=== PATIENT | female | born 1965 | race Caucasian/White ===

== ENCOUNTER 2025-07-09 10:01 | Observation (INO) | payer OTHER, SELFPAY ==
[2025-07-09] VITALS (14 sets, daily range): BP systolic 116–164; BP diastolic 63–138; PULSE 77–99; RESP 12–20; TEMP 36.4–36.9; O2SAT 97–100; BMI 20.8
--- NOTE | ~2025-07-09 | US_ITS ---
EXAMINATION: US carotid duplex BI DATE: 07/10/2025 13:01 INDICATION: Assess stroke risk TECHNIQUE: Grayscale, color Doppler, and pulsed Doppler images of the cervical carotid arteries were obtained. The degree of vessel stenosis is placed in one of the following categories: normal, <50%, 50-69%, >=70% but less than near- occlusion, near-occlusion, or total occlusion. Note that percent stenosis relative to normal distal artery lumen diameter is indirectly measured from velocity measurements as described by Erik, et al. Radiology 2003; 229:340-346. Notes: Normal: Peak systolic velocity <125 centimeters/sec and no plaque <50%. Peak systolic velocity <125 (EDV <40; ICA/CCA PSV ratio <2.0; used these factors only a tandem lesions or low cardiac output or contralateral disease) 50-69 %: PSV 125-230 (EDV 40-100; ratio 2-4) >= 70% but less than near occlusion: PSV greater than 230 (EDV > 100; ratio> 4.0) Near Occlusion: PSV that is variable; markedly narrowed lumen Occlusion: Absent flow on color/spectral Doppler and no lumen on ortiz scale. COMPARISON: None. FINDINGS: RIGHT: The right common carotid artery (CCA) peak systolic velocity (PSV) is 87 cm/s. The right internal carotid artery (ICA) PSV is 84 cm/s. The right ICA end- diastolic velocity (EDV) is 24 cm/s. The right ICA/CCA PSV ratio is 1.0. The external carotid artery (ECA) PSV is 96 cm/s. There is antegrade flow in the right vertebral artery. LEFT: The left CCA PSV is 84 cm/s. The left ICA PSV is 87 cm/s. The left ICA EDV is 31 cm/s. The left ICA/CCA PSV ratio is 1.0. The ECA PSV is 104 cm/s. There is antegrade flow in the left vertebral artery. IMPRESSION: 1. Less than 50% stenosis in the right internal carotid artery by sonographic criteria. 2. Less than 50% stenosis in the left internal carotid artery by sonographic criteria. Reviewed, dictated and finalized at location I. K HEADLIGHT ASSEMBLER IMPRESSION: 1. Less than 50% stenosis in the right internal carotid artery by sonographic onesimo hatch. 2. Less than 50% stenosis in the left internal carotid artery by sonographic nancy witt.
--- NOTE | ~2025-07-09 | CT_ITS ---
CT HEAD NON-CONTRAST Clinical History: fall, unwitnessed, nursing reporting balance issue Comparison: CT 07/09/2025 MRI 07/10/2025 Technique: Unenhanced axial images skull base to vertex Coronal, sagittal reformats CT images acquired with automatic exposure control for dose reduction DLP: 605 mGy-cm Findings: Mild white matter changes, typically chronic microvascular ischemic disease. Left thalamic lacune. Sulci, ventricles: Unremarkable. No intracerebral hemorrhage. No evidence acute territorial infarct. No mass effect, midline shift. Bony calvarium intact. Visualized paranasal sinuses: Clear. Mastoid air cells: Clear. IMPRESSION: 1. No acute intracranial findings. Reviewed, dictated and finalized at location R. INTAKE
--- NOTE | ~2025-07-09 | CT_ITS ---
EXAMINATION: CT brain wo con DATE: 07/09/2025 10:26 INDICATION: Altered mental status. TECHNIQUE: Computed tomography (CT) of the head was performed without intravenous contrast. The mA was adjusted according to patient size. Iterative reconstruction technique was employed. The dose-length product was 605.33 mGy-cm. COMPARISON: Head CT 05/13/2013 FINDINGS: There are scattered areas of low attenuation in the cerebral white matter. There is no intracranial hemorrhage, acute infarction, or abnormal intracranial mass lesion. The ventricles are normal in size. There is mild mucosal thickening in the paranasal sinuses. 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 The orbits are normal. The mastoid air cells are normal. IMPRESSION: 1. Moderate nonspecific cerebral white matter disease, which likely represents chronic small vessel ischemic disease. Reviewed, dictated and finalized at location E. ING EQUIPMENT MECHANIC
--- NOTE | ~2025-07-09 | MR_ITS ---
EXAMINATION: MR brain/brain stem wo con DATE: 07/10/2025 12:30 INDICATION: Seizure activity TECHNIQUE: Magnetic resonance imaging (MRI) of the brain and brainstem was performed without intravenous contrast. Sequences included sagittal and axial T1-weighted SE, axial diffusion-weighted FS SE, axial 3D SWAN, axial T2-weighted FLAIR Propeller, axial T2-weighted Propeller, coronal T2-weighted FLAIR, and coronal T1-weighted 3D FSPGR. Apparent diffusion coefficient (ADC) maps were created. COMPARISON: Head CT dated 07/09/2025 FINDINGS: There are no areas of restricted diffusion to suggest acute infarction. Small old lacunar infarct at the left thalamus. No intracranial hemorrhage or abnormal intracranial mass lesion. There are scattered areas of nonspecific increased T2- weighted signal intensity in the cerebral white matter, predominantly involving the deep and periventricular white matter. There are no intraparenchymal signal abnormalities seen on the other pulse sequences. The bilateral hippocampi appear normal and symmetric. No evident ortiz matter heterotopias or other neuronal migrational abnormalities. The ventricles are symmetric and normal in size. There are no abnormal extra-axial fluid collections. Flow voids are seen in the cerebral arteries on the T2-weighted sequences consistent with their expected patency. Mucus retention cyst in the right maxillary sinus. Visualized orbits and soft tissues are unremarkable. IMPRESSION: 1. Small old lacunar infarct at the left thalamus. No acute intracranial process. 2. Moderate scattered nonspecific periventricular predominant white matter T2 hyperintensity which within normal limits for age and likely sequela of chronic small vessel ischemic disease. Reviewed, dictated and finalized at location A. RAL DENTIST IMPRESSION: 1. Small old lacunar infarct at the left thalamus. No acute intracranial proces s. 2. Moderate scattered nonspecific periventricular predominant white matter T2 h yperintensity which within normal limits for age and likely sequela of chronic small vessel ischemic disease.
--- NOTE | 2025-07-09 10:07 | ECG_ITS ---
Test Date: 2025-07-09 10:34:41 Measurements Intervals [place] Rate: 76 P: -66 [place]: 88 QRS: 69 QRSD: 105 T: 48 QT: 432 QTc: 487 Interpretive Statements JUNCTIONAL RHYTHM MINIMAL ST DEPRESSION [0.025+ mV ST DEPRESSION] ABNORMAL RHYTHM ECG No previous ECG available for comparison Electronically Signed On 07-09-2025 15:27:30 [employer] by Andres Hines M.D.
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
[2025-07-09 10:39] LABS: Hematocrit 37.0 % (37.0-47.0); Hemoglobin 13.0 g/dL (12.0-15.0); Immature Granulocyte Percent A 0.3 % (0-0.5); Lymphocytes Absolute Auto 1.15 K/mm3 (0.9-3.2); Mean Corpuscular HGB Conc 35.1 g/dl (32-36); Mean Corpuscular Hemoglobin 37.5 pg (26-34); Mean Corpuscular Volume 106.6 fl (80-100); Nucleated Red Blood Cells Absolute Auto 0.000 K/mm3 (0.0-0.012); Nucleated Red Blood Cells Perc 0.0 % (0.0-0.2); Platelet Count Result 115 k/mm3 (150-375); Red Blood Count 3.47 M/mm3 (4.2-5.4); White Blood Count 4.0 K/mm3 (4.5-10.0)
[2025-07-09 10:50] LABS: INR 0.9; Prothrombin Time 12.1 Seconds (11.1-14.7)
[2025-07-09 10:51] LABS: Partial Thromboplastin Time 24.7 Seconds (22.3-36.8)
--- OUTSIDE RECORDS SUMMARY | 2025-07-09 10:51 | XMS_ITS | Clinical Summary ---
Author Organization [address] Address [address] [place] [id number] Care Team Providers Care Operations Expert Name Role Phone Unknown, Notinfile Primary Care Provider Unavail able Allergies No known active allergies Medications ondansetron (ZOFRAN) 4 mg tabletIndicatio ns:Nausea Take 1 tablet (4 mg total) by mouth every 8 (eight) hours as needed for nausea or vomiting 20 tablet 12/21/2024 Active Active Problems No known active problems Social History Tobacco Use Types Packs/Day Years Used Date Smoking Tobacco: Never Assessed Comments Unknown Sex and Gender Information Value Date Recorded Sex Assigned at Not on file Legal Sex Female 7:50 AM CDT Gender Identity Not on file Sexual Orientation Not on file Last Filed Vital Signs Vital Sign Reading Time Taken Comments Blood Pressure 132/92 12/21/2024 8:03 AM CDT Pulse 78 12/21/2024 8:03 AM CDT Temperature 36.6 C (97.9 F) 12/21/2024 8:03 AM CDT Respiratory Rate 21 12/21/2024 8:03 AM CDT Oxygen Saturation 98% 12/21/2024 8:03 AM CDT Inhaled Oxygen Concentration - - Weight 53.4 kg (117 lb 12.8 oz) 12/21/2024 8:03 AM CDT Height 152.4 cm (5') 12/21/2024 8:03 AM CDT Body Mass Index 23.01 12/21/2024 8:03 AM CDT Plan of Treatment Health Maintenance Due Date Last Done Comments Breast Cancer Screening-Mammogram 1965 Cervical Cancer Screening 1964 Colon Cancer Screening-Colonoscopy 1964 Depression Screening 1964 Hepatitis C Screening 1964 DTaP/Tdap/Td Vaccine (1 - Tdap) 1975 Hepatitis B Screening 1982 Regular Well Visit/Exam 18-64 1982 Zoster Vaccine (1 of 2) 2014 Covid-19 Vaccine (2024-2 6 season) 2025 12/11/2020, 11/19/2020 Influenza Vaccine (#1) 2025 Pneumococcal vaccine <65 Aged Out No longer eligible based on patient's age to complete this topic Care Teams Operations Expert Relationship Specialty Start Date End Date Unknown, Notinfile PCP - General 12/21/24
[2025-07-09 10:58] LABS: Alanine Aminotransferase 98 U/L (6-35); Albumin Level 4.6 g/dL (3.5-5.1); Alkaline Phosphatase 113 U/L (38-126); Anion Gap 10 mmol/L (4-12); Aspartate Amino Transferase 161 U/L (14-36); Bilirubin,Total 1.0 mg/dL (0.2-1.3); Blood Urea Nitrogen 7 mg/dL (7-17); Calcium 9.2 mg/dL (8.4-10.2); Carbon Dioxide 27 mmol/L (22-30); Chloride 95 mmol/L (98-107); Estimated CRCL calculation 83 ml/min; Estimated Glomerular Filt Rate > 60; Glucose 163 mg/dL (65-110); Hypochromasia Occasional; Macrocytosis Occasional (NORMAL); Potassium 2.8 mmol/L (3.4-5.0); Schistocytes None Seen; Sodium 132 mmol/L (137-145); Tear Drop Cells Occasional; Total Protein 7.0 g/dL (6.3-8.2)
[2025-07-09 11:22] LABS: Magnesium 1.3 mg/dL (1.6-2.3)
[2025-07-09] MEDS: POTASSIUM CHLORIDE 20 MEQ PACKET (FOR LIQUID) 40 MEQ PO (11:31)
[2025-07-09] MEDS: LACTATED RINGERS 1,000 ML 999 ML IV CONT (11:31)
[2025-07-09] MEDS: KCL 20 MEQ/SW 100 ML 100 ML 50 MEQ IVPB (11:31)
[2025-07-09] MEDS: diazePAM INJ (*CRX) 10 MG/2 ML SYRINGE 2 MG IV PUSH (12:00)
--- NOTE | 2025-07-09 12:00 | PC.NURSE ---
while in room, pt had a seizure. pt was staring off into space then started shaking, foaming at the mouth, snoring respirations. EDP Dr. Tsang called to bedside gave verbal order for 2mg versed, administered. pt was suctioned at the mouth, no oxygen given, airway patent pt now mumbling noncoherent. snoring respirations have subsided
[2025-07-09] MEDS: levETIRAcetam 1500MG/NACL100ML 1,500 MG/100 ML BAG 400 MG IVPB (12:04)
[2025-07-09] MEDS: MIDAZOLAM HCL (*CRX) 2 MG/2 ML VIAL IV PUSH (12:16)
[2025-07-09] MEDS: MAGNESIUM SULF 1 GM/D5W 100 ML 1 GM/100 ML BAG IVPB (12:21)
--- NOTE | 2025-07-09 12:28 | PC.NURSE ---
EDP called to bedside due to pt repeatedly trying to get out of bed. pt is still mumbling incoherently. EDP gave verbal order for 2mg of versed
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
--- NOTE | 2025-07-09 12:35 | PC.NURSE ---
pt still attempting to get out of bed. EDP aware. EDP gave verbal order for soft restraints
[2025-07-09] MEDS: LACTATED RINGERS 1,000 ML 125 ML IV CONT ×2 (12:56→21:34)
[2025-07-09 12:59] LABS: Add Urine Microscopic? YES; Appearance Urine Clear (Clear); Glucose Urine UA Trace mg/dL (Negative); Leukocyte Esterase Ur Negative LEU/UL (Negative); Nitrate Urine Negative (Negative); Specific Grav Ur 1.016 (1.001-1.035)
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
[2025-07-09 13:15] LABS: Cannabinoid Screen Urine Positive (Negative)
--- NOTE | 2025-07-09 14:17 | ADMGEN ---
This patient, Kenzie Pompa, was admitted to Medical Room 246-01. Patient/family oriented to hospital policies and general routines including ID bracelet, bed and alarms, visiting hours, pain management, procedures, bathroom and other care routines, personal items, smoking policy, room service/diet, and visiting hours. Information on how to activate the Rapid Response Team has been discussed. Patient/Family are encouraged to report perceived risks to care and to ask questions if they do not understand what they are told or what they should do.
[2025-07-09 14:30] LABS: Anion Gap 5 mmol/L (4-12); Blood Urea Nitrogen 5 mg/dL (7-17); Calcium 9.2 mg/dL (8.4-10.2); Carbon Dioxide 30 mmol/L (22-30); Chloride 95 mmol/L (98-107); Estimated CRCL calculation 88 ml/min; Estimated Glomerular Filt Rate > 60; Glucose 123 mg/dL (65-110); Magnesium 2.0 mg/dL (1.6-2.3); Potassium 3.3 mmol/L (3.4-5.0); Sodium 130 mmol/L (137-145)
[2025-07-09] MEDS: LORazepam (*CRX) 1 MG TABLET 2 MG PO (14:41)
[2025-07-09] MEDS: ACETAMINOPHEN 325 MG TABLET 650 MG PO (14:41)
[2025-07-09] MEDS: chlordiazePOXIDE (*CRX) 25 MG CAPSULE PO (17:33)
[2025-07-09] MEDS: ENOXAPARIN 40 MG/0.4 ML SYRINGE SUB-Q (20:52)
[2025-07-10] VITALS (7 sets, daily range): BP systolic 114–127; BP diastolic 60–71; PULSE 74–92; RESP 16–18; TEMP 36.1–36.5; O2SAT 97
[2025-07-10] MEDS: chlordiazePOXIDE (*CRX) 25 MG CAPSULE PO ×4 (00:19→17:21)
[2025-07-10 04:49] LABS: Hematocrit 34.6 % (37.0-47.0); Hemoglobin 11.8 g/dL (12.0-15.0); Immature Granulocyte Percent A 0.4 % (0-0.5); Lymphocytes Absolute Auto 2.48 K/mm3 (0.9-3.2); Mean Corpuscular HGB Conc 34.1 g/dl (32-36); Mean Corpuscular Hemoglobin 37.6 pg (26-34); Mean Corpuscular Volume 110.2 fl (80-100); Nucleated Red Blood Cells Absolute Auto 0.000 K/mm3 (0.0-0.012); Nucleated Red Blood Cells Perc 0.0 % (0.0-0.2); Platelet Count Result 105 k/mm3 (150-375); Red Blood Count 3.14 M/mm3 (4.2-5.4); White Blood Count 4.9 K/mm3 (4.5-10.0)
[2025-07-10] MEDS: LACTATED RINGERS 1,000 ML 125 ML IV CONT ×3 (05:01→23:26)
[2025-07-10 05:16] LABS: Anion Gap 0 mmol/L (4-12); Blood Urea Nitrogen 4 mg/dL (7-17); Calcium 8.6 mg/dL (8.4-10.2); Carbon Dioxide 30 mmol/L (22-30); Chloride 102 mmol/L (98-107); Estimated CRCL calculation 93 ml/min; Estimated Glomerular Filt Rate > 60; Glucose 97 mg/dL (65-110); Potassium 3.0 mmol/L (3.4-5.0); Sodium 132 mmol/L (137-145)
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
[2025-07-10] MEDS: THIAMINE HCL 100 MG TABLET PO (08:16)
[2025-07-10] MEDS: FOLIC ACID 1 MG TABLET PO (08:16)
[2025-07-10] MEDS: POTASSIUM CHLORIDE 20 MEQ ER TABLET 40 MEQ PO (08:16)
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
[2025-07-10 12:06] LABS: Hemoglobin A1C 4.6 % (<5.7)
[2025-07-10 12:11] LABS: Cholesterol 190 mg/dL (0-200); HDL Direct 104 mg/dL; Triglycerides 101 mg/dL (<150)
[2025-07-10 13:29] LABS: Vitamin B12 446.0 pg/mL (239-931)
[2025-07-10] MEDS: levETIRAcetam Tablet 250 MG, levETIRAcetam Tablet 500 MG 750 MG PO (21:25)
[2025-07-10] MEDS: ENOXAPARIN 40 MG/0.4 ML SYRINGE SUB-Q (21:25)
[2025-07-11] VITALS (10 sets, daily range): BP systolic 111–165; BP diastolic 74–89; PULSE 78–96; RESP 16–20; TEMP 36.4–36.5; O2SAT 97–100
[2025-07-11] MEDS: chlordiazePOXIDE (*CRX) 25 MG CAPSULE PO ×3 (00:48→20:16)
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
[2025-07-11] MEDS: CHOLECALCIFEROL (VITAMIN D3) 25 MCG (1,000 UNITS) TABLET PO (08:08)
[2025-07-11] MEDS: levETIRAcetam Tablet 250 MG, levETIRAcetam Tablet 500 MG 750 MG PO ×2 (08:09→20:16)
[2025-07-11] MEDS: FOLIC ACID 1 MG TABLET PO (08:09)
[2025-07-11] MEDS: THIAMINE HCL 100 MG TABLET PO (08:09)
[2025-07-11 08:15] LABS: Hematocrit 34.6 % (37.0-47.0); Hemoglobin 11.4 g/dL (12.0-15.0); Immature Granulocyte Percent A 0.3 % (0-0.5); Lymphocytes Absolute Auto 1.64 K/mm3 (0.9-3.2); Mean Corpuscular HGB Conc 32.9 g/dl (32-36); Mean Corpuscular Hemoglobin 37.5 pg (26-34); Mean Corpuscular Volume 113.8 fl (80-100); Nucleated Red Blood Cells Absolute Auto 0.000 K/mm3 (0.0-0.012); Nucleated Red Blood Cells Perc 0.0 % (0.0-0.2); Platelet Count Result 114 k/mm3 (150-375); Red Blood Count 3.04 M/mm3 (4.2-5.4); White Blood Count 3.9 K/mm3 (4.5-10.0)
[2025-07-11 08:41] LABS: Hypochromasia Occasional; Macrocytosis 1+ (NORMAL); Stomatocytes Occasional; Target Cells Occasional
[2025-07-11 08:42] LABS: Schistocytes None Seen
[2025-07-11 08:44] LABS: Alanine Aminotransferase 55 U/L (6-35); Albumin Level 3.6 g/dL (3.5-5.1); Alkaline Phosphatase 77 U/L (38-126); Anion Gap 1 mmol/L (4-12); Aspartate Amino Transferase 78 U/L (14-36); Bilirubin,Total 0.7 mg/dL (0.2-1.3); Blood Urea Nitrogen 2 mg/dL (7-17); Calcium 8.7 mg/dL (8.4-10.2); Carbon Dioxide 27 mmol/L (22-30); Chloride 105 mmol/L (98-107); Estimated CRCL calculation 107 ml/min; Estimated Glomerular Filt Rate > 60; Glucose 102 mg/dL (65-110); Magnesium 1.6 mg/dL (1.6-2.3); Potassium 3.3 mmol/L (3.4-5.0); Sodium 133 mmol/L (137-145); Total Protein 6.0 g/dL (6.3-8.2)
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
[2025-07-11] MEDS: POTASSIUM CHLORIDE 20 MEQ PACKET (FOR LIQUID) 40 MEQ PO (11:42)
[2025-07-11] MEDS: ENOXAPARIN 40 MG/0.4 ML SYRINGE SUB-Q (20:17)
[2025-07-12] VITALS: PULSE 88
[2025-07-12 04:00] VITALS: PULSE 69
[2025-07-12 04:58] LABS: Hematocrit 34.2 % (37.0-47.0); Hemoglobin 11.3 g/dL (12.0-15.0); Immature Granulocyte Percent A 0.5 % (0-0.5); Immature Platelet Fraction Pct 5.3 % (0.9-11.2); Lymphocytes Absolute Auto 1.61 K/mm3 (0.9-3.2); Mean Corpuscular HGB Conc 33.0 g/dl (32-36); Mean Corpuscular Hemoglobin 37.5 pg (26-34); Mean Corpuscular Volume 113.6 fl (80-100); Nucleated Red Blood Cells Absolute Auto 0.000 K/mm3 (0.0-0.012); Nucleated Red Blood Cells Perc 0.0 % (0.0-0.2); Platelet Count Result 139 k/mm3 (150-375); Red Blood Count 3.01 M/mm3 (4.2-5.4); White Blood Count 4.0 K/mm3 (4.5-10.0)
[2025-07-12 05:17] LABS: Hypochromasia 1+
[2025-07-12 05:18] LABS: Macrocytosis Occasional (NORMAL); Schistocytes None Seen
[2025-07-12 05:25] VITALS: BP 137/80; PULSE 71; RESP 20; TEMP 36.9; O2SAT 98
[2025-07-12 05:30] LABS: Anion Gap 4 mmol/L (4-12); Blood Urea Nitrogen 5 mg/dL (7-17); Calcium 9.0 mg/dL (8.4-10.2); Carbon Dioxide 23 mmol/L (22-30); Chloride 107 mmol/L (98-107); Estimated CRCL calculation 92 ml/min; Estimated Glomerular Filt Rate > 60; Glucose 125 mg/dL (65-110); Potassium 3.6 mmol/L (3.4-5.0); Sodium 134 mmol/L (137-145)
[2025-07-12 08:02] VITALS: PULSE 91
[2025-07-12 08:25] VITALS: RESP 20; O2SAT 98
[2025-07-12] MEDS: FOLIC ACID 1 MG TABLET PO (08:25)
[2025-07-12] MEDS: levETIRAcetam Tablet 250 MG, levETIRAcetam Tablet 500 MG 750 MG PO (08:25)
[2025-07-12] MEDS: CHOLECALCIFEROL (VITAMIN D3) 25 MCG (1,000 UNITS) TABLET PO (08:26)
[2025-07-12] MEDS: THIAMINE HCL 100 MG TABLET PO (08:26)
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
== END 2025-07-12 12:15 | disposition home or self-care (01) ==
LOC: ANHED 12:28 → ANH2MED 07-10 06:58
PROVIDERS: Emergency Medicine; Nurse Practitioner Adult Health; Physician Assistant; Psychiatry & Neurology Neurology; Admitting Provider Student in an Organized Health Care Education/Training Program; Emergency Provider Emergency Medicine; Visit Provider Internal Medicine
DX: R56.9 Unspecified convulsions (principal); R41.82 Altered mental status, unspecified; R90.82 White matter disease, unspecified; W19.XXXA Unspecified fall, initial encounter; E87.6 Hypokalemia; E83.42 Hypomagnesemia; R79.89 Other specified abnormal findings of blood chemistry; F17.210 Nicotine dependence, cigarettes, uncomplicated; F12.90 Cannabis use, unspecified, uncomplicated; F10.239 Alcohol dependence with withdrawal, unspecified; Z86.69 Personal history of other diseases of the nervous system and sense organs
CPT/HCPCS: 36415; 70450; 70551; 80048; 80053; 80061; 80307; 81001; 82077; 82306; 82607; 82746; 82948; 83036; 83605; 83735; 84207; 85025; 85055; 85610; 85730; 93005; 93880; 95816; 96361; 96365; 96366; 96367; 96368; 96372; 96375; 97161; 99285; A9270; G0378; J1650; J1953; J2250; J3360; J3475; J3480; J7120